=== PATIENT | male | born 2000 | race Caucasian/White ===

== ENCOUNTER 2021-02-19 22:04 | Inpatient (IN) | payer MEDICAID, SELFPAY ==
[2021-02-19 22:11] VITALS: BP 140/81; PULSE 114; RESP 16; TEMP 36.8; O2SAT 98
--- NOTE | 2021-02-19 22:49 | ED_ITS ---
HPI - Wound/Laceration General: Chief Complaint: Wound/Laceration Stated Complaint: lac on chest Time Seen by Provider: 02/19/21 22:32 History of Present Illness: HPI narrative: Patient is a 20-year-old male comes to the ED with laceration on chest. Patient says laceration is from self cutting with a razor blade. He endorses having a history of cutting that is gotten worse over the past couple months. He says that financial stress in his life currently is the main factor causing an increase in cutting. He denies any SI, HI. Denies any past suicidal thoughts or attempts. Denies any auditory, visual hallucinations. Patient does think he needs to get help and is willing to voluntarily be admitted into the psych unit. Associated symptoms: Denies chills, fever(s), nausea or vomiting Review of Systems Const: Denies: fever(s), chills or fatigue Eyes: Denies: change in vision or eye discomfort ENMT: Denies: throat pain, odynophagia, nasal discharge or nasal congestion Card: Denies: chest pain, palpitations, edema, swelling of feet/ankles, dyspnea on exertion or orthopnea Resp: Denies: dyspnea, productive cough or non-productive cough GI: Denies: abdominal pain, nausea, vomiting, diarrhea, constipation or [place] tochezia : Denies: flank pain, difficulty urinating, dysuria or hematuria Musc: Denies: neck pain, back pain or extremity swelling Skin/Breast: Reports: new lesions (Laceration to left chest.); Denies: rash Neuro: Denies: headache(s), numbness in extremities or weakness in extremities Psych: Reports: anxiety and other (Self-harm/cutting); Denies: depression, visual hallucinations, auditory hallucinations, suicidal ideation or homicidal ideation Physical Exam Const: COMMON NORMALS: no acute distress, patient oriented x3 and alert GENERAL APPEARANCE: cooperative and comfortable HENMT: COMMON NORMALS: normocephalic HEAD & SCALP: normocephalic MOUTH: Normal oral and palatal mucosa present THROAT: posterior oropharynx normal and uvula midline Neck/C-Spine: COMMON NORMALS: supple GENERAL: Yes normal visual inspection Chest: CHEST: Yes abnormal inspection of the chest OTHER: Patient has multiple scars from self cutting on chest. He has a 4 cm superficial, linear laceration on the left chest wall. There is minimal bleeding. Resp: COMMON NORMALS: normal respiratory effort, No retractions, No use of accessory muscles and clear to auscultation bilaterally AUSCULTATION: clear to auscultation bilaterally Cardio: COMMON NORMALS: regular rate, regular rhythm, S1 normal heart sound present, S2 normal heart sound present, No gallops present (Cardio), No clicks present (Cardio), No murmurs present (Cardio) and Peripheral pulses 2+ throu ghout RATE: regular rate RHYTHM: regular rhythm HEART SOUNDS: S1 normal heart sound present and S2 normal heart sound present PERIPHERAL PULSES: Peripheral pulses 2+ throughout GI: COMMON NORMALS: Normal to inspection, nondistended, normoactive bowel sounds present, Soft to palpation, non-tender and no masses PALPATION: Yes Soft to palpation : COMMON NORMALS: Yes no CVA tenderness BLADDER/KIDNEY EXAM: Yes no CVA tenderness Back/Pelvis: COMMON NORMALS: no CVA tenderness Extremity: NARRATIVE EXTREMITY EXAM: Multiple self cutting healed scars seen on left forearm and upper arm. GENERAL: Yes normal exam except as noted Neuro: COMMON NORMALS: patient oriented x3 and moves all extremities SENSORIUM/ORIENTATION: Yes alert Psych: COMMON NORMALS: mental status grossly normal and speech normal APPEARANCE: Yes grossly normal ATTITUDE: Yes engaged ACTIVITY/MOTOR BEHAVIOR: Yes appropriate eye contact SPEECH: Yes normal speech MOOD & AFFECT: Yes Other affect and mood findings present (Happy and making jokes) THOUGHT CONTENT: No Suicidality present, No Homicidality present, No delusions, No Hallucination(s) present and Yes Compulsions present (thought content) (Self cutting on chest and arms) ATTENTION/CONCENTRATION: Yes attention grossly intact and Yes concentration grossly intact MEMORY/COGNITION: Yes memory grossly intact and Yes cognition grossly intact INSIGHT: Fair insight present (Psych) JUDGEMENT: Fair judgement present (Psych) Skin: GENERAL SKIN EXAM: dry skin TRAUMA: laceration (Left chest wall 4 cm superficial linear laceration) linear, actively bleeding (minimal), superficial, motor nerve function intact and sensation intact; does not involve subcutaneous tissue Procedures Laceration Laceration 1: Site: chest (left chest wall, above areola) Side (If applicable): left Size (cm): 4 Description: linear and clean Depth: simple, single layer Local Anesthetic: lidocaine 1% and with epi Amount of anesthesia used (mL): 10 Pre-repair: irrigated extensively (With normal saline and skin was cleaned with CHG swab.) Skin layer closed with: nylon Size (cm): 4-0 Number of sutures: 10 Technique: simple, interrupted Course Consultations: Consultation #1: I spoke with Dr. Diana about patient case and he accepts admission and to the NPU. Time: 00:47 Vital Signs: Vital signs: Vital Signs Temperature 98.2 F 02/20/21 02:01 Pulse Rate 61 02/20/21 02:01 Respiratory Rate 19 H 02/20/21 02:01 Blood Pressure 142/84 02/20/21 02:01 Pulse Oximetry 99 02/20/21 02:01 MDM - Wound/Laceration MDM Narrative: Medical decision making narrative: Patient is a 20-year-old male comes to the ED with a self-inflicted laceration on chest with razor blade. Patient has multiple scars on left arm and chest due to self cutting patient denies any SI or HI, but does state he needs to get some help. Willingly volunteers to be admitted into the stress unit to get help. Patient's laceration on chest was irrigated extensively with normal saline and the skin was cleaned with CHG swab I then used lidocaine 1% with epi as local and placed 10 sutures to close wound. Told patient he can have sutures removed in approximately 7 to 10 days by another healthcare provider. I then performed the psych prescreening labs and contacted Dr. Diana about patient case. He accepts patient admission into the NPU. I then had Dr. Vidales place the admitting orders. Lab Data: Attestation: I reviewed the patient's lab results. Labs: Lab Results 02/19/21 02/19/21 Range/Units 23:04 23:04 WBC 8.2 (4.5-13.0) 10^3/ uL RBC 5.84 H (4.1-5.3) 10^6/u L Hgb 16.8 H (11.7-16.6) g/dL Hct 50.8 (42.0-52.0) % MCV 87.0 (80-94) fl MCH 28.8 (28.0-34.0) pg MCHC 33.1 (30.0-36.0) g/dL RDW 13.2 (12.1-15.1) % Plt Count 313 (130-400) 10^3/c mm MPV 9.1 (7.4-10.4) fL Neut % (Auto) 61.8 % Lymph % (Auto) 29.9 % [place] % (Auto) 5.4 % Eos % (Auto) 2.0 % Baso % (Auto) 0.7 % Neut # (Auto) 5.03 (1.8-8.0) 10^3/u L Lymph # (Auto) 2.4 (1.5-6.5) 10^3/u L [place] # (Auto) 0.4 (0.2-0.9) 10^3/u L Eos # (Auto) 0.2 (0.0-0.8) 10^3/u L Baso # (Auto) 0.1 (0.0-0.1) 10^3/u L Nucleated RBC % (a uto) 0 % Nucleated RBCs # 0.0 /100WBC Sodium 139 (136-145) mmol/L Potassium 3.9 (3.5-5.1) mmol/L Chloride 102 (98-107) mmol/L Carbon Dioxide 26 (22-29) mmol/L Anion Gap 14.9 (5-19) BUN 12 (6-20) mg/dL Creatinine 0.6 L (0.7-1.2) mg/dL GFR Calculation 173.6 H (90-130) mL/min Glucose 104 (65-115) mg/dL Calculated Osmolal ity 288 (285-295) mOsm/k g Calcium 9.5 (8.5-10.5) mg/dL Total Bilirubin 0.2 (0.15-1.2) mg/dL AST 27 (0-40) U/L ALT 56 H (0-41) U/L Alkaline Phosphata se 94 (40-130) IU/L Total Protein 7.4 (6.6-8.7) g/dL Albumin 4.6 (3.5-5.2) g/dL Globulin 2.8 (1.3-4.6) g/dL Salicylates < 0.3 L (3-10) mg/dL Acetaminophen < 5.0 L (10-30) ug/mL Ethyl Alcohol < 10 (0-10) mg/dL Discharge Plan Discharge Admit Provider: Italo Diana Coding Level of Care Code ED Manager Organizational for [facility] Fwd Exam Comprehensive
[2021-02-19 23:39] LABS: Basophils # 0.1 10^3/uL (0.0-0.1); Basophils % 0.7 %; Eosinophils # 0.2 10^3/uL (0.0-0.8); Hematocrit 50.8 % (42.0-52.0); Hemoglobin 16.8 g/dL (11.7-16.6); Lymphocytes # 2.4 10^3/uL (1.5-6.5); Lymphocytes % 29.9 %; Mean Corpuscular HGB Conc 33.1 g/dL (30.0-36.0); Mean Corpuscular Hemoglobin 28.8 pg (28.0-34.0); Mean Platelet Volume 9.1 fL (7.4-10.4); Monocytes # 0.4 10^3/uL (0.2-0.9); Monocytes % 5.4 %; Neutrophils # 5.03 10^3/uL (1.8-8.0); Neutrophils % 61.8 %; Nucleated Red Blood Cells % 0 %; Platelet Count 313 10^3/cmm (130-400); Red Blood Count 5.84 10^6/uL (4.1-5.3); Red Cell Distribution Width 13.2 % (12.1-15.1); White Blood Count 8.2 10^3/uL (4.5-13.0)
[2021-02-20] VITALS: BP 132/69; PULSE 89; RESP 16; TEMP 36.8; O2SAT 98
[2021-02-20 00:04] LABS: Alanine Aminotransferase 56 U/L (0-41); Albumin Level 4.6 g/dL (3.5-5.2); Alkaline Phosphatase 94 IU/L (40-130); Aspartate Amino Transferase 27 U/L (0-40); Blood Urea Nitrogen 12 mg/dL (6-20); Calcium 9.5 mg/dL (8.5-10.5); Carbon Dioxide 26 mmol/L (22-29); Chloride 102 mmol/L (98-107); Globulin 2.8 g/dL (1.3-4.6); Glomerular Filtration Rate 173.6 mL/min (90-130); Glucose 104 mg/dL (65-115); Osmolality Calculated 288 mOsm/kg (285-295); Sodium 139 mmol/L (136-145); Total Bilirubin 0.2 mg/dL (0.15-1.2); Total Protein 7.4 g/dL (6.6-8.7)
[2021-02-20 00:07] LABS: Acetaminophen < 5.0 ug/mL (10-30); Salicylate < 0.3 mg/dL (3-10)
[2021-02-20 00:08] LABS: Alcohol Level < 10 mg/dL (0-10); Anion Gap 14.9 (5-19); Potassium 3.9 mmol/L (3.5-5.1)
[2021-02-20 01:40] LABS: Add Urine Culture? No; Add Urine Microscopic? YES; Bacteria Urine TRACE /hpf; Bilirubin Urine Neg (Negative); Blood Urine 2+ (Negative); Glucose Urine UA Norm (Normal); Ketones Urine Negative (Negative); Leukocyte Esterase Urine Negative (Negative); Mucus Urine 2+ /hpf; Nitrate Urine Negative (Negative); Protein Urine Neg (Negative); RBC Urine 0-4 /hpf (0-2); Specific Gravity, Urine 1.015 (1.005-1.030); Squamous Epithelial Cell Urine 0-4 /hpf (0-5); Urine Appearance Clear (CLEAR); Urine Color Yellow (Yellow); Urobilinogen Urine Norm (Negative); WBC Urine 0-4 /hpf (0-5); pH Urine 6.5 (5-7)
[2021-02-20 01:49] VITALS: BP 132/69; PULSE 89; RESP 16; TEMP 36.8; O2SAT 98
[2021-02-20 01:55] LABS: Amphetamines Screen Urine Negative (Negative); Barbiturates Screen Urine Negative (Negative); Benzodiazepines Screen Urine Negative (Negative); Cocaine Screen Urine Negative (Negative); Opiate Screen Urine Negative (Negative); PCP Screen Urine Negative (Negative); THC Screen Urine Negative (Negative)
[2021-02-20 02:01] VITALS: BP 142/84; PULSE 61; RESP 19; TEMP 36.8; O2SAT 99
[2021-02-20 06:00] VITALS: BP 110/60; PULSE 111; RESP 20; TEMP 36.7; O2SAT 97
--- NOTE | 2021-02-20 08:40 | P.HP_ITS ---
Providers/Chief Complaint Admitting Physician: Italo Diana MD Chief Complaint: lac on chest HPI NPU History of Present Illness Kevin Baumann is a 20 year old male who presented to the emergency departme nt the following report: Chief Complaint: Wound/Laceration Stated Complaint: lac on chest Time Seen by Provider: 02/19/21 22:32 History of Present Illness: HPI narrative: Patient is a 20-year-old male comes to the ED with laceration on chest. Patient says laceration is from self cutting with a razor blade. He endorses having a history of cutting that is gotten worse over the past couple months. He says that financial stress in his life currently is the main factor causing an increase in cutting. He denies any SI, HI. Denies any past suicidal thoughts or attempts. Denies any auditory, visual hallucinations. Patient does think he needs to get help and is willing to voluntarily be admitted into the psych unit. Associated symptoms: Denies chills, fever(s), nausea or vomiting. He was admitted to the neuropsychiatric unit for definitive treatment of those issues. He presents today reporting that he has never been in a psychiatric hospital. He reports he has had outpatient therapy at something called the [facility] with a couple of meetings. He has never been on medication before. He does not smoke cigarettes, drink alcohol, smoke marijuana, or use any other illicit drugs. He has never been to a rehab or had a DUI. He has never had a suicide attempt. He does report that he has come here to get help with mood swings that he feels he has coming from being very angry to very withdrawn, feeling like he is okay at one moment and really down another. He says he gets really angry, he feels hopeless, helpless, worthless, depressed, disconnected from people. He reports he started having self-injurious behavior when he was a teenager, likely in middle school, and that behavior has waxed and waned. He showed significant cuts on his arm of differing ages. He reports he normally does the cuts where they cannot be seen, like his chest or stomach, but recently he has been getting really angry and it has escalated. Before he came into the hospital, it had gotten to the point where he was doing cuts on his arm, and he even has cuts on his face. He reports that the experiences due to cuts are like urges, that he will not be even angry, and it is like he is drawn to do it, and he cannot control it. He has these obsessions and then he eventually feels compelled to actually act on those urges. He endorses that he has had a fairly isolated childhood, having some friends, but not a lot of friends in high school, and since he graduated a couple years ago, he has not really been connected with anyone. He does not have any real outlets he says except for video games, and he does draw. He had some sketches in front of him which were very nice. We discussed the risks, benefits, and alternatives of initiating Prozac, and he understood and agreed to proceed as is documented in this note. We also discussed the possibility of initiating Lamictal prior to discharge but agreed that with him never having been on medication, we would start with just the one medication. PSYCHIATRIC HISTORY: As above. SUBSTANCE ABUSE HISTORY: As above. FAMILY HISTORY: He endorses mental health issues on his father?s side but denies any alcohol or other drug issues on either side of the family or any suicide attempts or completions that run in the family. DEVELOPMENTAL HISTORY: He denies issues with his mother?s or delivery of him. He met all developmental milestones on time. He denies any speech therapy, learning support, emotional support, or special education classes. PSYCHOSOCIAL HISTORY: He endorses his parents were together when he was born, and that he is the only product of that union, but his mother does have a son that is his half-sibling. He reports his childhood was pretty normal. He denies any emotional, physical, or sexual abuse. He denies any traumatic events that he can recall. He endorses that he graduated from high school. In high school, he was not involved in any activities, did not have many friends, and he currently plays videogames and has connections from the [employer] on-line, but no in-person friendships. He endorses being bisexual, but he has never had any relationships, so he has never been , never had children, never been in the , denies any taoism belief system. 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 He reports that the pandemic impacted that situation, but he has not been employed before or since. He currently lives in a house with his mother. LEGAL HISTORY: He denies any history of incarceration or legal peril. MEDICAL HISTORY: Denied. For the superficial cuts and scratches are notable on face and arms. Meds NPU Home Medications Medication Instructions Recorded Confirmed Last Taken Type No Known Home Medications 02/20/21 02/20/21 Unknown History Allergies Allergy/AdvReac Type Severity Reaction Status Date / Time No Known Allergies Allergy Verified 02/19/21 22:16 Mental Status Exam MSE Comments: This is an overweight, white male, with hospital scrubs on with adequate grooming, and eye contact. No abnormal movements except for mild psychomotor retardation. Cooperative with exam with notable superficial cuts on his left cheek. Speech was decreased rate and volume. Mood described as alright; affect slightly subdued. Thought process, organized. Thought content: patient denied any suicidal or homicidal ideation, there were no delusions reported or noted, patient denied any auditory or visual hallucinations. Attention, concentration, and memory appear intact but were not formally tested. He is alert and oriented times three. Insight and judgment are limited, impulse control is impaired. Vitals/I&O/Wt Last Vital Signs Temp 98.2 F 02/20/21 02:01 Pulse 61 02/20/21 02:01 Resp 19 H 02/20/21 02:01 BP 142/84 02/20/21 02:01 Pulse Ox 99 02/20/21 02:01 Weight last 48 hrs Weight 77.111 kg Data NPU : 02/19/21 23:04 02/19/21 23:04 A&P Assessment and plan (1) Major depressive disorder, recurrent, moderate: Status: Acute (2) Autism spectrum: Status: Acute (3) Self-injurious behavior: Status: Acute (4) OCD (obsessive compulsive disorder): Status: Acute Additional A&P Information This is a 20-year-old, white male, with a limited history of mental health treatment, with genetic loading for mental health issues, on his father?s side, who presents with a long history of cutting with some obsessive nature to the cutting, with very limited social interactions throughout his life, who presents endorsing a desire to follow through with treatment and medication management. RECOMMENDATION AND PLAN: 1. Start Prozac 20 mg po qam and we will consider starting Lamictal, depending on his response. 2. Encourage individual, group, and milieu therapy. 3. Continue q-15 minute checks for safety. Involuntary Hold Information 96 Hour Hold: 96 Hour Involuntary Admission: No Attestations NPU Medical Necessity Statement*: Inpatient hospitalization is medically necessary and the clinically appropriate intervention, at this time. We will monitor medications and make changes as indicated. Patient will be in the hospital for o marisabel two midnights. Likely length of stay is 3-5 days. Coding Level of Care Code Acute Bond Manager for [facility] Fwd Diagnoses Major depressive disorder, recurrent, moderate F33.1 Autism spectrum F84.0 Self-injurious behavior Z72.89 OCD (obsessive compulsive disorder) F42.9
[2021-02-20 14:00] VITALS: BP 121/63; PULSE 86; RESP 17; TEMP 37.1; O2SAT 96
[2021-02-20 22:00] VITALS: BP 121/63; PULSE 86; RESP 17; TEMP 37.1; O2SAT 96
[2021-02-21 06:00] VITALS: BP 121/63; PULSE 86; RESP 17; TEMP 37.1; O2SAT 96
[2021-02-21] MEDS: fluoxetine 20 mg Capsule PO (09:06)
[2021-02-21 13:52] VITALS: BP 129/72; PULSE 74; RESP 16; TEMP 37.1; O2SAT 96
--- NOTE | 2021-02-21 17:18 | P.PN_ITS ---
Subjective NPU Subjective: Interval history: Kevin presents today reporting that he is feeling better on the Prozac. He denied any specific side effects of the medication or difficulties at this time. He reports that he is eating okay and sleeping fine. He reports he did talk to his mom the previous night and that she was happy that he was getting help. We discussed the possibility of disc harge in the next 48 hours likely Friday and he understood and agreed to proceed as is documented in this note. Mental Status Exam MSE Comments: This is an overweight, white male, with hospital scrubs on with adequate grooming, and eye contact. No abnormal movements except for mild psychomotor retardation. Cooperative with exam with notable superficial cuts on his left cheek. Speech was decreased rate and volume with limited prosody. Mood described as a little better; affect slightly subdued. Thought process, organized. Thought content: patient denied any suicidal or homicidal ideation, there were no delusions reported or noted, patient denied any auditory or visual hallucinations. Attention, concentration, and memory appear intact but were not formally tested. He is alert and oriented times three. Insight and judgment are limited, impulse control is impaired. Vitals/I&O/Wt Last Vital Signs Temp 98.6 F 02/21/21 20:53 Pulse 86 02/21/21 20:53 Resp 20 H 02/21/21 20:53 BP 117/79 02/21/21 20:53 Pulse Ox 98 02/21/21 20:53 Data NPU : 02/19/21 23:04 02/19/21 23:04 A&P Additional A&P Information (1) Major depressive disorder, recurrent, moderate: (2) Autism spectrum: (3) Self-injurious behavior: (4) OCD (obsessive compulsive disorder): Additional A&P Information This is a 20-year-old, white male, with a limited history of mental health treatment, with genetic loading for mental health issues, on his father?s side, who presents with a long history of cutting with some obsessive nature to the cutting, with very limited social interactions throughout his life, who presents endorsing a desire to follow through with treatment and medication management. RECOMMENDATION AND PLAN: 1. Start Prozac 20 mg po qam and we will consider starting Lamictal, depending on his response. 2. Encourage individual, group, and milieu therapy. 3. Continue q-15 minute checks for safety. Involuntary Hold Information 96 Hour Hold: 96 Hour Involuntary Admission: No Attestations NPU Medical Necessity Statement*: Inpatient hospitalization is medically necessary and the clinically appropriate intervention, at this time. We will monitor medications and make changes as indicated. Likely length of stay is 2-4 days. Coding Level of Care Code Acute Geothermal Operations Manager for Adrian[facility]valc[facility]
[2021-02-21 20:53] VITALS: BP 117/79; PULSE 86; RESP 20; TEMP 37; O2SAT 98
[2021-02-22 06:00] VITALS: BP 119/75; PULSE 74; RESP 18; TEMP 36.8; O2SAT 98
[2021-02-22] MEDS: fluoxetine 20 mg Capsule PO (08:46)
--- NOTE | 2021-02-22 12:25 | P.PN_ITS ---
Subjective NPU Subjective: Interval history: Patient presents today reporting that he is tolerating the Prozac well and denies any specific symptoms or problems. He denies urges to cut or any problematic thought processes. He reports that he believes he will feel safe for discharge tomorrow. Reports that he is eating and sleeping fine. Mental Status Exam MSE Comments: This is an overweight, white male, with hospital scrubs on with adequate grooming, and eye contact. No abnormal movements except for mild psychomotor retardation. Cooperative with exam with notable superficial cuts on his left cheek. Speech was more normal rate and volume with limited prosody. Mood described as a little better; affect congruent. Thought process, organized. Thought content: patient denied any suicidal or homicidal ideation, there were no delusions reported or noted, patient denied any auditory or visual kelly lucinations. Attention, concentration, and memory appear intact but were not formally tested. He is alert and oriented times three. Insight and judgment are limited, impulse control is limited. Vitals/I&O/Wt Last Vital Signs Temp 98.2 F 02/22/21 06:00 Pulse 74 02/22/21 06:00 Resp 18 02/22/21 06:00 BP 119/75 02/22/21 06:00 Pulse Ox 98 02/22/21 06:00 Data NPU : 02/19/21 23:04 02/19/21 23:04 A&P Additional A&P Information 1) Major depressive disorder, recurrent, moderate: (2) Autism spectrum: (3) Self-injurious behavior: (4) OCD (obsessive compulsive disorder): This is a 20-year-old, white male, with a limited history of mental health treatment, with genetic loading for mental health issues, on his father?s side, who presents with a long history of cutting with some obsessive nature to the cutting, with very limited social interactions throughout his life, who presents endorsing a desire to follow through with treatment and medication management. RECOMMENDATION AND PLAN: 1. Continue current medication.. 2. Encourage individual, group, and milieu therapy. 3. Continue q-15 minute checks for safety. 4. Likely discharge in the next 48 hours. Involuntary Hold Information 96 Hour Hold: 96 Hour Involuntary Admission: No Attestations NPU Medical Necessity Statement*: Inpatient hospitalization is medically necessary and the clinically appropriate intervention, at this time. We will monitor medications and make changes as indicated. Likely length of stay is 1-3 days. Coding Level of Care Code Acute Smoked Meat Preparer for Adrianne Ruvalcaba
[2021-02-22 13:21] VITALS: BP 130/75; PULSE 73; RESP 16; TEMP 37.1; O2SAT 97
[2021-02-22 22:00] VITALS: BP 128/74; PULSE 76; RESP 17; TEMP 36.7; O2SAT 98
[2021-02-23 06:00] VITALS: BP 141/70; PULSE 84; RESP 17; TEMP 36.9; O2SAT 99
[2021-02-23] MEDS: fluoxetine 20 mg Capsule PO (09:47)
--- NOTE | 2021-02-23 12:53 | P.DS_ITS ---
Diagnoses at Discharge Discharge Diagnosis (1) Major depressive disorder, recurrent, moderate: Status: Acute (2) Autism spectrum: Status: Acute (3) Self-injurious behavior: Status: Acute (4) OCD (obsessive compulsive disorder): Status: Acute Reason for Visit Reason for Visit: lac on chest Brief History: History of Present Illness Kevin Baumann is a 20 year old male who presented to the emergency department the following report: Chief Complaint: Wound/Laceration Stated Complaint: lac on chest Time Seen by Provider: 02/19/21 22:32 History of Present Illness: HPI narrative: Patient is a 20-year-old male comes to the ED with laceration on chest. Patient says laceration is from self cutting with a razor blade. He endorses having a history of cutting that is gotten worse over the past couple months. He says that financial stress in his life currently is the main factor causing an increase in cutting. He denies any SI, HI. Denies any past suicidal thoughts or attempts. Denies any auditory, visual hallucinations. Patient does think he needs to get help and is willing to voluntarily be admitted into the psych unit. Associated symptoms: Denies chills, fever(s), nausea or vomiting. He was admitted to the neuropsychiatric unit for definitive treatment of those issues. He presents today reporting that he has never been in a psychiatric hospital. He reports he has had outpatient therapy at something called the [facility] with a couple of meetings. He has never been on medication before. He does not smoke cigarettes, drink alcohol, smoke marijuana, or use any other illicit drugs. He has never been to a rehab or had a DUI. He has never had a suicide attempt. He does report that he has come here to get help with mood swings that he feels he has coming from being very angry to very withdrawn, feeling like he is okay at one moment and really down another. He says he gets really angry, he feels hopeless, helpless, worthless, depressed, disconnected from people. He reports he started having self-injurious behavior when he was a teenager, likely in middle school, and that behavior has waxed and waned. He showed significant cuts on his arm of differing ages. He reports he normally does the cuts where they cannot be seen, like his chest or stomach, but recently he has been getting really angry and it has escalated. Before he came into the hospital, it had gotten to the point where he was doing cuts on his arm, and he even has cuts on his face. He reports that the experiences due to cuts are like urges, that he will not be even angry, and it is like he is drawn to do it, and he cannot control it. He has these obsessions and then he eventually feels compelled to actually act on those urges. He endorses that he has had a fairly isolated childhood, having some friends, but not a lot of friends in high school, and since he graduated a couple years ago, he has not really been connected with anyone. He does not have any real outlets he says except for video games, and he does draw. He had some sketches in front of him which were very nice. We discussed the risks, benefits, and alternatives of initiating Prozac, and he understood and agreed to proceed as is documented in this note. We also discussed the possibility of initiating Lamictal prior to discharge but agreed that with him never having been on medication, we would start with just the one medication. PSYCHIATRIC HISTORY: As above. SUBSTANCE ABUSE HISTORY: As above. FAMILY HISTORY: He endorses mental health issues on his father?s side but denies any alcohol or other drug issues on either side of the family or any suicide attempts or completions that run in the family. DEVELOPMENTAL HISTORY: He denies issues with his mother?s or delivery of him. He met all developmental milestones on time. He denies any speech therapy, learning support, emotional support, or special education classes. PSYCHOSOCIAL HISTORY: He endorses his parents were together when he was born, and that he is the only product of that union, but his mother does have a son that is his half-sibling. He reports his childhood was pretty normal. He denies any emotional, physical, or sexual abuse. He denies any traumatic events that he can recall. He endorses that he graduated from high school. In high school, he was not involved in any activities, did not have many friends, and he currently plays videogames and has connections from the [employer] on-line, but no in-person friendships. He endorses being bisexual, but he has never had any relationships, so he has never been , never had children, never been in the , denies any alevism belief system. 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 He reports that the pandemic impacted that situation, but he has not been employed before or since. He currently lives in a house with his mother. LEGAL HISTORY: He denies any history of incarceration or legal peril. MEDICAL HISTORY: Denied. For the superficial cuts and scratches are notable on face and arms. Hospital Course Hospital Course He quickly acclimated to the individual, group and milieu therapy provided. He was started on Prozac 20 mg p.o. every morning and showed significant improvement. He was able to contract for safety prior to discharge. During the hospitalization, patient had routine laboratory studies which were within normal limits except for few outliers. Additionally there was a general medical evaluation which was also within normal limits and revealed no new acute processes. Discharge Summary: At the time of discharge, he was absent psychosis or lethality. Mood and anxiety were well managed. Patient endorsed a plan to follow-up with the aftercare recommendations of the treatment team. Patient was evaluated and deemed to be absent credible lethality, and had achieved the maximum benefit from an inpatient hospitalization, so was discharged. Involuntary Hold Information 96 Hour Hold: 96 Hour Involuntary Admission: No Mental Status Exam MSE Comments: This is an overweight, white male, with hospital scrubs on with adequate grooming, and eye contact. No abnormal movements except for mild psychomotor retardation. Cooperative with exam with notable superficial cuts on his left cheek. Speech was more normal rate and volume with limited prosody. Mood described as pretty good, but improving; affect congruent. Thought process, organized. Thought content: patient denied any suicidal or homicidal ideation, there were no delusions reported or noted, patient denied any auditory or visual hallucinations. Attention, concentration, and memory appear intact but were not formally tested. He is alert and oriented times three. Insight and judgment are limited but improving, impulse control is improving. Discharge Data Vitals: Last Vital Signs Temp 98.4 F 02/23/21 06:00 Pulse 84 02/23/21 06:00 Resp 02/23/21 06:00 BP 141/70 02/23/21 06:00 Pulse Ox 99 02/23/21 06:00 Discharge Plan Discharge Patient Disposition: Home Condition: Stable Prescriptions: New fluoxetine 20 mg Capsule 20 mg PO DAILY 30 Days Qty: 30 RF: 1 Discharge Orders: Discharge Order (Routine); Ordered 02/23/21 Ordered By: Italo Diana [place]: [facility] [place] [facility] [place] (Walk-in Tuesdays or 7:30am to 3pm.) Discharge Diet: Regular Discharge Activity: Resume usual activity Patient Instructions: Opioid Safety Discharge Attestations NPU Time Spent in Discharge Care*: less than 30 min Specific Discharge Activities: Specific discharge activities: educating patient, discussing with piano case maker/social workers/dc planners, documenting/other paperwork and evaluating patient/reviewing data Coding Level of Care Code Acute Chg DC note Diagnoses Major depressive disorder, recurrent, moderate F33.1 Autism spectrum F84.0 Self-injurious behavior Z72.89 OCD (obsessive compulsive disorder) F42.9
[2021-02-23 13:25] VITALS: BP 141/70; PULSE 84; RESP 17; TEMP 36.9; O2SAT 99
== END 2021-02-23 18:00 | disposition home or self-care (01) | DRG 885 ==
LOC: ER 23:34 → NP 02-20 07:06
PROVIDERS: Admitting Provider Psychiatry & Neurology Psychiatry; Emergency Provider Physician Assistant; Visit Provider Psychiatry & Neurology Psychiatry
DX: F33.1 Major depressive disorder, recurrent, moderate (principal); S21.112A Laceration without foreign body of left front wall of thorax without penetration into thoracic cavity, initial encounter; X78.8XXA Intentional self-harm by other sharp object, initial encounter; F84.0 Autistic disorder; F42.9 Obsessive-compulsive disorder, unspecified; Z72.89 Other problems related to lifestyle; Z81.8 Family history of other mental and behavioral disorders; Z91.5 Personal history of self-harm; Z59.9 Problem related to housing and economic circumstances, unspecified
CPT/HCPCS: 12002; 80053; 80306; 80307; 81001; 85025; 97165; 99285